=== PATIENT | male | born 1955 | race Caucasian/White ===

== ENCOUNTER 2018-10-13 16:03 | Emergency (ER) | payer OTHER ==
[2018-10-13] MEDS ORDERED: ONDANSETRON 4 MG/2 ML VIAL IVPUSH ONE (17:04)
[2018-10-13] MEDS ORDERED: SODIUM CHLORIDE 1,000 ML IV STA (17:04)
[2018-10-13] MEDS ORDERED: ACETAMINOPHEN 1000 MG/100 ML VIAL (NON FORMULARY) IVPB ONE (17:04)
--- NOTE | 2018-10-13 17:04 | PDOC ---
Rapid Medical Evaluation Medical Evaluation: I have performed a brief in-person evaluation of this patient. The patient presents with a chief complaint of: Hx herniated disc (spinal block done last week), head/neck CA (in remission), HTN; Since last night, c/o sharp abd pain with occasional episode of NBNB emesis; initial LUQ and now also along LLQ Pertinent physical exam findings: In NAD, mild L CVA ttp, mild TTP along LUP and LLQ, nondistended I have ordered the following: Labs, IVF, zofran The patient will proceed to the ED for further evaluation. 10/13/18 16:57
[2018-10-13 17:08] VITALS: BP 148/97; PULSE 81; TEMP 100; BMI 23.7
[2018-10-13 18:13] LABS: URINE APPEARANCE SLCLOUDY; URINE BILIRUBIN NEGATIVE (<2.0 mg/dL); URINE COLOR AMBER; URINE GLUCOSE (UA) NEGATIVE (NEGATIVE); URINE KETONE NEGATIVE (NEGATIVE); URINE LEUK ESTERASE TRACE (NEGATIVE); URINE NITRITE NEGATIVE (NEGATIVE); URINE PROTEIN NEGATIVE (NEGATIVE)
[2018-10-13 18:18] LABS: CALCIUM OXALATE CRYSTALS MODERATE /hpf (NONE SEEN); URINE HYALINE CAST 1 /lpf; URINE MUCUS RARE
[2018-10-13 20:08] LABS: BASO % 0.2 % (0-2.0); EOS % 0.1 % (0-4.5); HEMATOCRIT 44.7 % (35.4-49); HEMOGLOBIN 15.6 GM/dL (11.7-16.9); LYMPH % 4.4 % (8-40); MCH 33.5 pg (25.7-33.7); MCHC 34.8 g/dl (32.0-35.9); MEAN CELL VOLUME 96.2 fl (80-96); MEAN PLT VOLUME 7.8 fl (7.5-11.1); MONO % 7.4 % (3.8-10.2); NEUT % 87.9 % (42.8-82.8); PLATELET COUNT 259 K/MM3 (134-434); RBC 4.64 M/mm3 (4.00-5.60); RDW 12.6 % (11.9-15.9); WHITE BLOOD COUNT 18.3 K/mm3 (4.0-10.0)
== END 2018-10-13 19:53 | disposition left against medical advice (07) ==
LOC: JER 16:03
DX: R10.84 Generalized abdominal pain (principal)
CPT/HCPCS: 36415; 81003; 81015; 85025; 87086; 99282-25